=== PATIENT | male | born 1975 | race Caucasian/White ===

== ENCOUNTER → 2020-04-19 17:03 | Outpatient (BNVA) | payer MEDICARE, MEDICAID, SELFPAY | PROVIDERS: Family Provider Counselor Professional; Visit Provider Emergency Medicine | DX: Z11.59 Encounter for screening for other viral diseases (principal); R68.89 Other general symptoms and signs | CPT/HCPCS: 87400; 87635 ==

== ENCOUNTER → 2020-09-11 11:40 | Outpatient (BNVA) | payer OTHER, SELFPAY | PROVIDERS: Family Provider Counselor Professional; Visit Provider Psychiatry & Neurology Neurology | DX: F43.12 Post-traumatic stress disorder, chronic (principal) | CPT/HCPCS: 80061; 83036; 83721 ==